=== PATIENT | female | born 1935 | race Hispanic/Latino ===

== ENCOUNTER 2016-12-27 17:43 | Emergency (ER) | payer MEDICARE ==
[2016-12-27 17:49] VITALS: BMI 28.0
[2016-12-27 17:58] VITALS: TEMP 98
--- NOTE | 2016-12-27 18:18 | ED PDOC ---
Arrival/HPI <Teo Diaz - Last Filed: 12/27/16 20:06> <KarelGiovanny quick Bal - Last Filed: 12/27/16 20:25> - General Chief Complaint: High Blood Pressure Time Seen by Provider: 12/27/16 17:48 - History of Present Illness Narrative History of Present Illness (Text): 12/27/16 18:14 CC: headache PMD: Dr. Flores This patient is an 81yo F w/ a PMhx of HTN and Diffuse B-Cell Lymphoma on Imbruvica infusions who is coming to the hospital after her most recent infusion. States they were "trying to push the medicine in faster" than usual and she started to develop hypertension at the center and a headache. States this is her 5th infusion, and this has never happened to her before while receiving them. She denies all other symptoms; no chest pain, SOB, abdominal pain, fevers/chills, N/V/D, dysuria/freq/urg, or lower extremity pain/swelling. States she doubled up on her losartan, 160 to 320mg today and it did not lower her BP. Pmhx: HTN, advancing B-Cell lymphoma as per PET scan Hemeonc: follows up at [facility]: Imbruvica, Valsartan, folic acid, vitamins Allergies: PCN 12/27/16 18:21 (Teo Diaz) Past Medical History - Provider Review Nursing Documentation Reviewed: Yes - Travel History Have you recently traveled outside [place] w/in the past 3 mons?: No - Infectious Disease Hx of Infectious Diseases: None - Cardiac Hx Cardiac Disorders: Yes Hx Hypertension: Yes Hx Pacemaker: No - Pulmonary Hx Respiratory Disorders: No - Neurological Hx Neurological Disorder: No Hx Paralysis: No - HEENT Hx HEENT Disorder: Yes Other/Comment: glasses - Renal Hx Renal Disorder: No - Endocrine/Metabolic Hx Endocrine Disorders: No - Hematological/Oncological Hx Blood Disorders: Yes Hx Blood Transfusions: No Hx Blood Transfusion Reaction: No Hx Chemotherapy: Yes (once a month) Hx Lymphoma: Yes - Integumentary Hx Dermatological Disorder: No - Musculoskeletal/Rheumatological Hx Musculoskeletal Disorders: Yes Hx Arthritis: Yes - Gastrointestinal Hx Gastrointestinal Disorders: No - Genitourinary/Gynecological Hx Genitourinary Disorders: No - Psychiatric Hx Psychophysiologic Disorder: No Hx Emotional Abuse: No Hx Physical Abuse: No Hx Substance Use: No - Surgical History Hx Hysterectomy: Yes - Anesthesia Hx Anesthesia: Yes Hx Anesthesia Reactions: No Hx Malignant Hyperthermia: No - Suicidal Assessment Feels Threatened In Home Enviroment: No <Teo Diaz - Last Filed: 12/27/16 20:06> Family/Social History - Physician Review Nursing Documentation Reviewed: Yes Family/Social History: Diabetes, Hypertension, CAD/IA Smoking Status: Never Smoked Hx Alcohol Use: No Hx Substance Use: No <Teo Diaz - Last Filed: 12/27/16 20:06> Allergies/Home Meds <Teo Diaz - Last Filed: 12/27/16 20:06> <Giovanny Torres - Last Filed: 12/27/16 20:25> Allergies/Adverse Reactions: Allergies Penicillins Allergy (Verified 12/27/16 17:49) RASH Home Medications: Home Meds Medication Instructions Recorded Confirmed Cholecalciferol (Vitamin D3) 1 tab PO DAILY 12/27/16 12/27/16 [Vitamin D3] Folic Acid/Mv,Iron,Min [Centrum 1 tab PO DAILY 12/27/16 12/27/16 Chewable Tablet] Hydrochlorothiazide [Microzide] 25 mg PO DAILY 12/27/16 12/27/16 Ibrutinib [Imbruvica] 3 tab PO DAILY 12/27/16 12/27/16 Valsartan [Diovan] 160 mg PO DAILY 12/27/16 12/27/16 Vitamin B Complex [Super B-50 1 tab PO DAILY 12/27/16 12/27/16 Complex] Review of Systems - Review of Systems Constitutional: absent: Fatigue, Weight Change Eyes: absent: Vision Changes, Photophobia, Eye Pain ENT: absent: Hearing Changes, Tinnitus Respiratory: absent: SOB, Cough Cardiovascular: absent: Chest Pain, Palpitations Gastrointestinal: absent: Abdominal Pain, Stool Changes Genitourinary Female: absent: Dysuria, Frequency Musculoskeletal: absent: Arthralgias, Back Pain Skin: absent: Rash, Pruritis Neurological: Headache. absent: Dizziness, Focal Weakness, Gait Changes, Speech Changes, Facial Droop, Disequilibrium Endocrine: absent: Diaphoresis, Polyuria Hemo/Lymphatic: absent: Adenopathy Psychiatric: absent: Anxiety, Depression <Teo Diaz - Last Filed: 12/27/16 20:06> Physical Exam Temperature: Afebrile Blood Pressure: Hypertensive Pulse: Regular Respiratory Rate: Normal Appearance: Positive for: Well-Appearing, Non-Toxic, Comfortable Pain Distress: None Mental Status: Positive for: Alert and Oriented X 3 - Systems Exam Head: Present: Atraumatic Extroacular Muscles: Present: EOMI Conjunctiva: Present: Normal Mouth: Present: Moist Mucous Membranes Neck: Present: Normal Range of Motion Respiratory/Chest: Present: Clear to Auscultation, Good Air Exchange Cardiovascular: Present: Regular Rate and Rhythm, Murmurs (aortic stenosis 4/6) Abdomen: No: Tenderness, Distention Back: Present: Normal Inspection. No: CVA Tenderness Upper Extremity: Present: Normal Inspection. No: Cyanosis, Edema Lower Extremity: Present: Normal Inspection. No: Edema, CALF TENDERNESS Neurological: Present: GCS=15, CN II-XII Intact, Speech Normal Skin: Present: Warm Psychiatric: Present: Alert, Oriented x 3, Normal Insight <Teo Diaz - Last Filed: 12/27/16 20:06> Vital Signs Reviewed: Yes <Giovanny Torres - Last Filed: 12/27/16 20:25> Vital Signs Temp Pulse Resp BP Pulse Ox 12/27/16 20:00 80 16 153/80 H 96 12/27/16 19:13 76 15 161/88 H 98 12/27/16 19:03 79 16 146/70 97 12/27/16 18:43 69 16 162/80 H 96 12/27/16 18:39 74 185/95 H 12/27/16 17:56 98.0 F 72 18 202/84 H 97 Medical Decision Making <Teo Diaz - Last Filed: 12/27/16 20:06> <Giovanny Torres - Last Filed: 12/27/16 20:25> ED Course and Treatment: 12/27/16 18:[address] BP at bedside was 185/95; patient has no neurological abnormalities GCS15 NIHHS score of 0, ambulating well ANOx3 EKG shows NSR at 70BPM w/ nonspecific T wave abnormalities poor R wave progression with prolonged QRS f/u CBC CMP Cardiac Iso ddx hypertensive urgency/emergency vs ACS vs dehydration Reassess and disposition 12/27/16 18:[address] is negative CBC is WNL for patient; elevated WBC is lower than normal for the patient 12/27/16 19:16 Chest xray clear 12/27/16 19:21 Troponin negative 12/27/16 19:32 Patients blood pressure has been lowered to goal patient feels better patient will see dr flores tomorrow for blood pressure medication adjustment patient agrees with treatment plan and wishes to leave discussed w/ Dr. Torres (Teo Diaz) A 81 year old female with high blood pressure. In agreement with resident note, which includes further HPI details. Patient was seen and evaluated with resident , came up with plan and treatment together. (Giovanny Torres) - Lab Interpretations Lab Results: 12/27/16 18:40 12/27/16 18:40 Lab Results 12/27/16 18:40: Sodium 130 L, Potassium 4.5, Chloride 90 L, Carbon Dioxide 30, Anion Gap 15, BUN 27 H, Creatinine 0.8, Est GFR ( Amer) > 60, Est GFR ( Non-Af Amer) > 60, Random Glucose 86, Calcium 9.5, Magnesium 2.0, Total Bilirubin 0.7, AST 49 H, ALT 31, Alkaline Phosphatase 78, Lactate Dehydrogenase 531, Total Creatine Kinase 35, Troponin I < 0.01, Total Protein 7.3, Albumin 4.4 , Globulin 2.8, Albumin/Globulin Ratio 1.6 12/27/16 18:40: WBC 14.7 H, RBC 4.08, Hgb 11.4 L, Hct 33.0 L, MCV 80.9, MCH 27.9 , MCHC 34.5, RDW 16.8 H, Plt Count 229, MPV 9.6, Gran % 58.5, Lymph % (Auto) 29.1, [place]ois % (Auto) 10.4 H, Eos % (Auto) 1.4 L, Baso % (Auto) 0.6, Gran # 8.56 H , Lymph # 4.3 H, [place]quois # 1.5 H, Eos # 0.2, Baso # 0.09 - RAD Interpretation Radiology Orders: 12/27/16 18:10 Brain [HEAD W/O CONTRAST] [CT] Stat 12/27/16 18:36 CHEST ONE VIEW [RAD] Stat - Medication Orders Current Medication Orders: Discontinued Medications Hydralazine HCl (Apresoline) 10 mg IVP STAT SKYLER Last Admin: 12/27/16 18:39 Dose: 10 mg <Teo Diaz - Last Filed: 12/27/16 20:06> - PA / INNOVATION ANALYST / Resident Statement / has reviewed & agrees with the documentation as recorded. /DO has examined the patient and agrees with the treatment plan. - Scribe Statement The provider has reviewed the documentation as recorded by the Scribe <Giovanny Torres - Last Filed: 12/27/16 20:25> - Scribe Statement Lynn Bianchi Provider Scribe Attestation: All medical record entries made by the Scribe were at my direction and personally dictated by me. I have reviewed the chart and agree that the record accurately reflects my personal performance of the history, physical exam, medical decision making, and the department course for this patient. I have also personally directed, reviewed, and agree with the discharge instructions and disposition. (Giovanny Torres) Disposition/Present on Arrival - Present on Arrival Any Indicators Present on Arrival: No History of DVT/PE: No History of Uncontrolled Diabetes: No Urinary Catheter: No History of Decub. Ulcer: No History Surgical Site Infection Following: None - Disposition Have Diagnosis and Disposition been Completed?: Yes Disposition Time: 19:32 Patient Plan: Discharge <Teo Diaz - Last Filed: 12/27/16 20:06> <Giovanny Torres - Last Filed: 12/27/16 20:25> - Disposition Diagnosis: Hypertension Disposition: HOME/ ROUTINE Condition: FAIR Discharge Instructions (ExitCare): Hypertension (ED) Referrals: Gera Flores MD [Primary Care Provider] - Follow up with primary
[2016-12-27 18:56] LABS: BASO # 0.09 K/mm3 (0.0-2.0); BASO % 0.6 % (0.0-3.0); EOS # 0.2 (0.0-0.7); EOS % 1.4 % (1.5-5.0); GRAN # 8.56 (1.4-6.5); GRAN % 58.5 % (50.0-68.0); HEMOGLOBIN 11.4 gm/dL (12.0-16.0); LYMPH # 4.3 (1.2-3.4); LYMPH % 29.1 % (22.0-35.0); MEAN CELL VOLUME 80.9 fL (80.0-105.0); MEAN CORPUSCULAR HEMOGLOBIN 27.9 pg (25.0-35.0); MEAN CORPUSCULAR HGB CONC 34.5 g/dl (31.0-37.0); MEAN PLATELET VOLUME 9.6 fl (7.0-11.0); MONO # 1.5 (0.1-0.6); MONO % 10.4 % (1.0-6.0); PLATELET COUNT 229 10^3/uL (120.0-450.0); RBC 4.08 10^6/uL (3.5-6.1); RED CELL DISTRIBUTION WIDTH 16.8 % (11.5-14.5); WHITE BLOOD COUNT 14.7 10^3/ul (4.5-11.0)
--- NOTE | 2016-12-27 18:57 | CT ---
PROCEDURE: CT HEAD WITHOUT CONTRAST. HISTORY: headache COMPARISON: None available. TECHNIQUE: Axial computed tomography images were obtained through the head/brain without intravenous contrast. Radiation dose: Total exam DLP = 725.84 mGy-cm. This CT exam was performed using one or more of the following dose reduction techniques: Automated exposure control, adjustment of the mA and/or kV according to patient size, and/or use of iterative reconstruction technique. FINDINGS: HEMORRHAGE: No intracranial hemorrhage. BRAIN: No mass effect or edema. Scattered periventricular and subcortical white matter hypodensities, which are nonspecific, but often seen with chronic microvascular ischemic disease. Please note that MRI with diffusion imaging is more sensitive in the detection of acute ischemic event. VENTRICLES: No hydrocephalus. CALVARIUM: Unremarkable. PARANASAL SINUSES: Unremarkable as visualized. No significant inflammatory changes. MASTOID AIR CELLS: Unremarkable as visualized. No inflammatory changes. OTHER FINDINGS: None. IMPRESSION: Nonspecific white matter changes as above.
[2016-12-27 19:07] LABS: ALB/GLOB RATIO 1.6 (1.1-1.8); ALBUMIN 4.4 g/dL (3.0-4.8); ALT/SGPT 31 U/L (7-56); AST/SGOT 49 U/L (15-39); BLOOD UREA NITROGEN 27 mg/dL (7-21); CALCIUM 9.5 mg/dL (8.4-10.5); GFR AFRICAN-AMERICAN > 60; GFR NON-AFRICAN AMERICAN > 60
[2016-12-27 19:26] LABS: TROPONIN I < 0.01 ng/mL
[2016-12-27 20:14] VITALS: BP 153/80; PULSE 80; RESP 16; O2SAT 96
--- NOTE | 2016-12-28 07:27 | RAD ---
PROCEDURE: CHEST RADIOGRAPH, 1 VIEW HISTORY: headache COMPARISON: None available. FINDINGS: LUNGS: The lungs are well inflated and clear. PLEURA: No pneumothorax or pleural fluid seen. CARDIOVASCULAR: The heart is normal in size. Atherosclerotic aortic arch calcifications are present. OSSEOUS STRUCTURES: Within normal limits for the patient's age. VISUALIZED UPPER ABDOMEN: Normal. OTHER FINDINGS: None. IMPRESSION: No active pulmonary disease.
--- NOTE | 2016-12-28 16:28 | CARD ---
APPROVED REPORT EKG Measurement Heart [id number] <Conclusion> Normal sinus rhythm Possible Left atrial enlargement Left axis deviation RBBB Nonspecific ST abnormality Abnormal ECG
== END 2016-12-27 20:14 | disposition home or self-care (01) ==
LOC: ED 17:43
DX: I10 Essential (primary) hypertension (principal)
CPT/HCPCS: 70450; 71010; 80053; 82550; 83615; 83735; 84484; 85025; 93005; 96374; 99284; J0360

== ENCOUNTER 2017-03-25 10:28 | Emergency (ER) | payer MEDICARE ==
[2017-03-25 10:28] VITALS: BMI 28.0
--- NOTE | 2017-03-25 10:49 | ED PDOC ---
Arrival/HPI - General Time Seen by Provider: 03/25/17 10:30 Historian: Patient, Family - History of Present Illness Narrative History of Present Illness (Text): 03/25/17 10:35 Henrietta Mcdonald is an 81 year old female, whose past medical history includes lymphoma (on Rituxan since September), who presents to the emergency department after having a syncopal episode, prior to arrival. Patient reports she was in [place] when one of the witnesses states she passed out and was unresponsive for a minute. Patient also states having lower abdominal cramping since eating dinner last night and describes it as a sensation of needing to have a BM. She was experiencing these cramps and felt light-headed prior to passing out. These cramps are currently resolved and she denies any abdominal pain presently. Patient denies chest pain, shortness of breath, nausea, vomiting, diarrhea, or other complaints. PMD: Dr. Adair Time/Duration: Prior to Arrival Symptom Onset: Sudden Symptom Course: Unchanged Activities at Onset: Rest Context: Sitting Associated Symptoms (Text): lightheaded, abdominal pain Past Medical History - Provider Review Nursing Documentation Reviewed: Yes - Infectious Disease Hx of Infectious Diseases: None - Cardiac Hx Cardiac Disorders: Yes Hx Hypertension: Yes Hx Pacemaker: No - Pulmonary Hx Respiratory Disorders: No - Neurological Hx Neurological Disorder: No Hx Paralysis: No - HEENT Hx HEENT Disorder: Yes Other/Comment: glasses - Renal Hx Renal Disorder: No - Endocrine/Metabolic Hx Endocrine Disorders: No - Hematological/Oncological Hx Blood Disorders: Yes Hx Blood Transfusions: No Hx Blood Transfusion Reaction: No Hx Chemotherapy: Yes (once a month) Hx Lymphoma: Yes - Integumentary Hx Dermatological Disorder: No - Musculoskeletal/Rheumatological Hx Musculoskeletal Disorders: Yes Hx Arthritis: Yes - Gastrointestinal Hx Gastrointestinal Disorders: No - Genitourinary/Gynecological Hx Genitourinary Disorders: No - Psychiatric Hx Psychophysiologic Disorder: No Hx Emotional Abuse: No Hx Physical Abuse: No Hx Substance Use: No - Surgical History Hx Hysterectomy: Yes - Anesthesia Hx Anesthesia: Yes Hx Anesthesia Reactions: No Hx Malignant Hyperthermia: No - Suicidal Assessment Feels Threatened In Home Enviroment: No Family/Social History - Physician Review Nursing Documentation Reviewed: Yes Family/Social History: Other (non-contributory) Smoking Status: Never Smoked Hx Alcohol Use: No Hx Substance Use: No Allergies/Home Meds Allergies/Adverse Reactions: Allergies Penicillins Allergy (Verified 12/27/16 17:49) RASH Home Medications: Home Meds Medication Instructions Recorded Confirmed Hydrochlorothiazide [Microzide] 25 mg PO DAILY 12/27/16 03/25/17 Valsartan [Diovan] 160 mg PO DAILY 12/27/16 03/25/17 Review of Systems - Review of Systems Constitutional: absent: Fevers Respiratory: absent: SOB, Cough Cardiovascular: Syncope (prior to arrival ). absent: Chest Pain Gastrointestinal: Abdominal Pain. absent: Diarrhea, Nausea, Vomiting Neurological: Other (lightheaded). absent: Headache Physical Exam Vital Signs Reviewed: Yes Vital Signs Temp Pulse Resp BP Pulse Ox 03/25/17 13:57 80 18 138/89 03/25/17 11:59 79 18 135/83 100 03/25/17 10:28 98.3 F 73 16 122/82 97 Blood Pressure: Normal Pulse: Regular Respiratory Rate: Normal Appearance: Positive for: Well-Appearing, Non-Toxic, Comfortable Pain Distress: None Mental Status: Positive for: Alert and Oriented X 3 - Systems Exam Head: Present: Atraumatic, Normocephalic Neck: Present: Normal Range of Motion Respiratory/Chest: Present: Clear to Auscultation. No: Respiratory Distress, Accessory Muscle Use Cardiovascular: Present: Regular Rate and Rhythm, Normal S1, S2. No: Murmurs Abdomen: Present: Normal Bowel Sounds. No: Tenderness, Distention, Peritoneal Signs, Rebound, Guarding Upper Extremity: Present: Normal ROM, NORMAL PULSES. No: Cyanosis, Edema Lower Extremity: Present: NORMAL PULSES, Normal ROM. No: Edema, Tenderness, Swelling Neurological: Present: GCS=15, Motor Func Grossly Intact, Normal Sensory Function, Other (no focal deficits) Skin: Present: Warm, Dry, Rashes Psychiatric: Present: Alert, Oriented x 3 Medical Decision Making ED Course and Treatment: 03/25/17 EKG: Ordered, reviewed, and independently interpreted the EKG. Rate : 83 BPM Rhythm : NSR Interpretation : incomplete RBBB. non-specific ST changes 03/25/17 13:34 pt resting comfortably, appears well. I disc results and rec admission for obs and further eval of syncope, however she does not wish to stay. I disc my concern for cardiac arrhythmia which may recur and lead to . she v/u and wishes to be dc. - Lab Interpretations Lab Results: 03/25/17 11:54 03/25/17 11:54 Lab Results 03/25/17 11:54: Sodium 140, Chloride 97 L, Potassium 4.2, Carbon Dioxide 32, Anion Gap 15, BUN 24 H, Creatinine 0.9, Est GFR ( Amer) > 60, Est GFR ( Non-Af Amer) > 60, Random Glucose 103, Calcium 9.6, Total Bilirubin 0.4, AST 35 , ALT 41, Alkaline Phosphatase 103, Troponin I < 0.01, Total Protein 7.1, Albumin 4.3, Globulin 2.7, Albumin/Globulin Ratio 1.6 03/25/17 11:54: pO2 31, VBG pH 7.33, VBG pCO2 64.0 H, VBG HCO3 33.7 H, VBG Total CO2 35.7 H, VBG O2 Sat (Calc) 68.0 H, VBG Base Excess 5.7 H, VBG Potassium 3.9, Sodium 137.0, Chloride 100.0, Glucose 103, Lactate 1.8, FiO2 21.0 , Venous Blood Potassium 3.9 03/25/17 11:54: WBC 10.6 D, RBC 4.21, Hgb 11.6 L, Hct 35.4 L, MCV 84.1, MCH 27.6, MCHC 32.8, RDW 17.6 H, Plt Count 257, MPV 8.6, Gran % 59.9, Lymph % (Auto ) 27.8, Hood % (Auto) 9.8 H, Eos % (Auto) 2.1, Baso % (Auto) 0.4, Gran # 6.33, Lymph # 2.9, Hood # 1.0 H, Eos # 0.2, Baso # 0.04 03/25/17 11:01: POC Glucose (mg/dL) 89 - RAD Interpretation Radiology Orders: 03/25/17 11:03 HEAD W/O CONTRAST [CT] Stat CHEST PORTABLE [RAD] Stat - EKG Interpretation Interpreted by ED Physician: Yes Type: 12 lead EKG NIHSS Stroke Scale 3 - Date/Time Evaluation Performed Date Performed: 03/25/17 Time Performed: 10:30 When Was NIHSS Performed: Baseline - How Severe is the Stroke Level of Consciousness: 0=Alert LOC to Questions: 0=Both comments correct LOC to commands: 0=Obeys both correctly Best Gaze: 0=Normal Visual: 0=No visual loss Facial: 0=Normal Motor Arm - Left: 0=No drift Motor Arm - Right: 0=No drift Motor Leg - Left: 0=No drift Motor Leg - Right: 0=No drift Limb Ataxia: 0=Absent Sensory: 0=Normal Best Language: 0=No aphasia Dysarthia: 0=Normal articulation Extinction & Inattention (Neglect): 0=Normal, no object Score: 0 - Scribe Statement The provider has reviewed the documentation as recorded by the Scribe Reyna Santillan Provider Scribe Attestation: All medical record entries made by the Scribe were at my direction and personally dictated by me. I have reviewed the chart and agree that the record accurately reflects my personal performance of the history, physical exam, medical decision making, and the department course for this patient. I have also personally directed, reviewed, and agree with the discharge instructions and disposition. Disposition/Present on Arrival - Present on Arrival Any Indicators Present on Arrival: No History of DVT/PE: No History of Uncontrolled Diabetes: No Urinary Catheter: No History Surgical Site Infection Following: None - Disposition Have Diagnosis and Disposition been Completed?: Yes Diagnosis: Syncope Disposition: HOME/ ROUTINE Disposition Time: 13:34 Condition: STABLE Discharge Instructions (ExitCare): Syncope (ED) Additional Instructions: Please follow up with your doctor. Return to the ER for any worsening symptoms or for any other concerns. Referrals: Gera Medina MD [Family Provider] - Follow up with primary Forms: [employer] ([place]ian)
[2017-03-25 12:00] VITALS: RESP 18; TEMP 98.3; O2SAT 100
[2017-03-25 12:01] LABS: BASO # 0.04 K/mm3 (0.0-2.0); BASO % 0.4 % (0.0-3.0); EOS # 0.2 (0.0-0.7); EOS % 2.1 % (1.5-5.0); GRAN # 6.33 (1.4-6.5); GRAN % 59.9 % (50.0-68.0); HEMATOCRIT 35.4 % (36.0-48.0); LYMPH # 2.9 (1.2-3.4); LYMPH % 27.8 % (22.0-35.0); MEAN CELL VOLUME 84.1 fl (80.0-105.0); MEAN CORPUSCULAR HEMOGLOBIN 27.6 pg (25.0-35.0); MEAN CORPUSCULAR HGB CONC 32.8 g/dl (31.0-37.0); MEAN PLATELET VOLUME 8.6 fl (7.0-11.0); MONO % 9.8 % (1.0-6.0); RED CELL DISTRIBUTION WIDTH 17.6 % (11.5-14.5); VENOUS BLOOD GAS BASE EXCESS 5.7 mmol/L (0.0-2.0); VENOUS BLOOD PH 7.33 (7.32-7.43); WHITE BLOOD COUNT 10.6 10^3/ul (4.5-11.0)
[2017-03-25 12:07] LABS: ALB/GLOB RATIO 1.6 (1.1-1.8); ALKALINE PHOSPHATASE 103 U/L (38-126); ALT/SGPT 41 U/L (7-56); AST/SGOT 35 U/L (14-36); BILIRUBIN,TOTAL 0.4 mg/dL (0.2-1.3); BLOOD UREA NITROGEN 24 mg/dL (7-21); CALCIUM 9.6 mg/dL (8.4-10.5); CARBON DIOXIDE 32 mmol/L (21-33); CHLORIDE 97 mmol/L (98-107); GFR AFRICAN-AMERICAN > 60; GLUCOSE,RANDOM 103 mg/dL (70-110); POTASSIUM 4.2 mmol/L (3.6-5.0); SODIUM 140 mmol/L (132-148); TOTAL PROTEIN 7.1 g/dL (5.8-8.3)
[2017-03-25 12:20] LABS: TROPONIN I < 0.01 ng/mL
--- NOTE | 2017-03-25 12:41 | CT ---
PROCEDURE: CT HEAD WITHOUT CONTRAST. HISTORY: syncope COMPARISON: None available. TECHNIQUE: Axial computed tomography images were obtained through the head/brain without intravenous contrast. Radiation dose: Total exam DLP = 678 mGy-cm. This CT exam was performed using one or more of the following dose reduction techniques: Automated exposure control, adjustment of the mA and/or kV according to patient size, and/or use of iterative reconstruction technique. FINDINGS: HEMORRHAGE: No intracranial hemorrhage. BRAIN: No mass effect or edema. Chronic microvascular changes are seen. No acute findings VENTRICLES: Unremarkable. No hydrocephalus. CALVARIUM: Unremarkable. PARANASAL SINUSES: Unremarkable as visualized. No significant inflammatory changes. MASTOID AIR CELLS: Unremarkable as visualized. No inflammatory changes. OTHER FINDINGS: None. IMPRESSION: No acute intracranial findings
--- NOTE | 2017-03-25 13:08 | RAD ---
HISTORY: syncope COMPARISON: 12/27/2016 FINDINGS: LUNGS: No active pulmonary disease. PLEURA: No significant pleural effusion identified, no pneumothorax apparent. CARDIOVASCULAR: Normal. OSSEOUS STRUCTURES: No significant abnormalities. VISUALIZED UPPER ABDOMEN: Normal. OTHER FINDINGS: None. IMPRESSION: No active disease.
[2017-03-25 13:57] VITALS: BP 138/89; PULSE 80
--- NOTE | 2017-03-25 19:52 | CARD ---
APPROVED REPORT EKG Measurement Heart [id number] ID [id number] <Conclusion> Normal sinus rhythm Possible Left atrial enlargement Incomplete right bundle branch block Left ventricular hypertrophy Nonspecific ST abnormality Abnormal ECG
== END 2017-03-25 13:57 | disposition home or self-care (01) ==
LOC: ED 10:28
DX: R55 Syncope and collapse (principal); I10 Essential (primary) hypertension; I45.10 Unspecified right bundle-branch block; Z88.0 Allergy status to penicillin

== ENCOUNTER 2018-06-21 08:46 | Outpatient (CLI) | payer MEDICARE | END 2018-06-21 08:47 | disposition home or self-care (01) | LOC: RAD 08:46 | DX: I71.2 Thoracic aortic aneurysm, without rupture (principal) ==